=== PATIENT | female | born 1985 | race African-American/Black ===

== ENCOUNTER 2023-11-26 10:25 | Emergency (ER) | payer MEDICAID ==
[~2023-11-26] VITALS: Ht 149.9 cm; Wt 90.0 kg
[2023-11-26 10:43] VITALS: TEMP 97.5
[2023-11-26] MEDS: SODIUM CHLORIDE 0.9% 1,000 ML IV ONE (10:54)
[2023-11-26] MEDS: ONDANSETRON HCL 4 MG/2 ML VIAL IVP ONE (11:37)
[2023-11-26] MEDS ORDERED: DIPH25CA85 PO (14:46)
[2023-11-26 15:40] VITALS: BP 110/64; PULSE 72; RESP 18; O2SAT 98
== END 2023-11-26 15:56 | disposition home or self-care (01) ==
LOC: EMS 10:25
DX: T78.40XA Allergy, unspecified, initial encounter (principal); G24.09 Other drug induced dystonia; F41.9 Anxiety disorder, unspecified; F31.9 Bipolar disorder, unspecified; F17.210 Nicotine dependence, cigarettes, uncomplicated; F12.90 Cannabis use, unspecified, uncomplicated; Z88.0 Allergy status to penicillin
CPT/HCPCS: 99283; 96374; 96361; J2405; J7030